=== PATIENT | female | born 1995 | race Caucasian/White ===

== ENCOUNTER 2016-07-17 02:56 | Emergency (ER) | payer OTHER ==
--- NOTE | ~2016-07-17 | CR72 ---
[facility]. [facility] A Service of [facility] & [facility] RADIOLOGY TEXT RESULTS PATIENT: ZENOBIA CASH LOCATION: SED : [birth year] UNIT #: [id number] AGE: [address]: Brain Fulton MD SEX: F ORDER DR: [id number] [address] [id number] MR#: [id number] Acc #: [id number] NAME: ZENOBIA CASH : 1995 SEX: F STUDY DATE/TIME: 07/17/2016 3:34 UNIT: SED ROOM: STUDY DESCRIPTION: CR Chest Single View Portable Attending Physician: Brain Fulton M.D. Ordering Physician: Brain Fulton M.D. Primary Care Physician: Primary Care Physician No MEDICAL IMAGING REPORT This report is preliminary unless electronic signature is present. EXAM Chest 07/17/2016 HISTORY 21-year-old female with cough and left-sided rib pain for 3 weeks. COMPARISON None FINDINGS Frontal chest demonstrates clear lungs. No pleural effusion or pneumothorax. Heart size and mediastinum are normal. Pulmonary vasculature normal. IMPRESSION No acute cardiopulmonary findings. Dictated by... Mulugeta Herrera M.D. THIS IS AN ELECTRONICALLY VERIFIED REPORT Mulugeta Herrera M.D. at 07/18/2016 4:39 PM YOAN/nina TD: 07/17/2016 16:59 JOB #: [id number] MEDICAL IMAGING REPORT Page 1 of 1
[~2016-07-17 02:56] MED LIST: ZOFRAN ODT4 MG PO
== END 2016-07-17 04:48 | disposition home or self-care (01) ==
LOC: SED 02:56
DX: M94.0 Chondrocostal junction syndrome [Tietze] (principal); F17.200 Nicotine dependence, unspecified, uncomplicated
CPT/HCPCS: 71010; 99283